=== PATIENT | female | born 1985 | race Caucasian/White ===

== ENCOUNTER 2017-08-07 19:27 | Emergency (ER) | payer BC ==
[2017-08-07 19:40] VITALS: BP 136/53
--- NOTE | 2017-08-07 20:20 | EDM.PDOC ---
ED HPI GENERAL MEDICAL PROBLEM - General Chief Complaint: Abdominal Pain Stated Complaint: LOWER ABDOMINAL PAIN Time Seen by Provider: 08/07/17 20:04 Source of Information: Reports: Patient History Limitations: Reports: No Limitations - History of Present Illness INITIAL COMMENTS - FREE TEXT/NARRATIVE: PT STATES SHE DEVELOPED LOWER ABD PAIN 3 DAYS AGO THAT HAS PROGRESSIVELY WORSENED AND NOW RADIATING TO BACK WITH URINARY URGENCY AND FREQUENCY. DENIES N/ V/D, FEVER, CP, SOB, OR VAG D/C. CURRENTLY TRYING TO GET . Onset: Gradual Onset Date: 08/04/17 Duration: Day(s): Location: Reports: Abdomen Quality: Reports: Ache Severity: Mild Improves with: Reports: None Worsens with: Reports: None Associated Symptoms: Reports: No Other Symptoms. Denies: Fever/Chills, Nausea/ Vomiting Bilateral Lower Abdominal Pain Score (Numeric/FACES): 2 - Related Data Allergies Allergy/AdvReac Type Severity Reaction Status Date / Time No Known Drug Allergies Allergy Cannot Verified 08/07/17 19:52 Remember Home Meds: Home Meds FLUoxetine HCl [Prozac] 20 mg PO DAILY 08/07/17 [History] Venlafaxine [Effexor] 37.5 mg PO DAILY 08/07/17 [History] hydrOXYzine HCl [Atarax] 25 mg PO TID PRN 08/07/17 [History] metroNIDAZOLE [Metrogel] 1 applic TP BID 7 Days #1 gel..gram. 08/07/17 [Rx] Social & Family History - Tobacco Use Smoking Status *Q: Never Smoker Second Hand Smoke Exposure: No - Caffeine Use Caffeine Use: Reports: Coffee, Soda, Tea - Recreational Drug Use Recreational Drug Use: No ED ROS GENERAL - Review of Systems Review Of Systems: ROS reveals no pertinent complaints other than HPI. Constitutional: Reports: No Symptoms HEENT: Reports: No Symptoms Respiratory: Reports: No Symptoms Cardiovascular: Reports: No Symptoms Endocrine: Reports: No Symptoms GI/Abdominal: Reports: Abdominal Pain : Reports: Flank Pain, Frequency, Urgency. Denies: Discharge, Dysuria Musculoskeletal: Reports: No Symptoms Skin: Reports: No Symptoms Neurological: Reports: No Symptoms Psychiatric: Reports: No Symptoms Hematologic/Lymphatic: Reports: No Symptoms Immunologic: Reports: No Symptoms ED EXAM, RENAL/ - Physical Exam Exam: See Below Exam Limited By: No Limitations General Appearance: Alert, WD/WN, No Apparent Distress Throat/Mouth: Normal Inspection, Normal Oropharynx, No Airway Compromise Head: Atraumatic, Normocephalic Neck: Normal Inspection Respiratory/Chest: No Respiratory Distress, Lungs Clear, Normal Breath Sounds, No Accessory Muscle Use, Chest Non-Tender Cardiovascular: Regular Rate, Rhythm, No Murmur GI/Abdominal: Normal Bowel Sounds, Soft, No Organomegaly, No Distention, No Mass , Tender (MILD TENDERNESS SUPRAPUBIC) (Female) Exam: Cervical Discharge (white creamy), Vaginal Discharge. No: Adnexal Mass, Adnexal Tenderness, Cervical Dilatation, Cervix Motion Tenderness , Uterine Tenderness, Vaginal Bleeding, Vaginal Lesions Back Exam: Normal Inspection, CVA Tenderness (L), CVA Tenderness (R) Extremities: Normal Inspection, No Pedal Edema Neurological: Alert, Oriented, Normal Cognition Psychiatric: Normal Affect, Normal Mood Skin Exam: Warm, Dry, Intact, Normal Color, No Rash Lymphatic: No Adenopathy Course - Vital Signs Last Recorded V/S: Last Vital Signs Temp 98.9 F 08/07/17 19:37 Pulse 98 08/07/17 19:37 Resp 16 08/07/17 19:37 BP 136/53 L 08/07/17 19:37 Pulse Ox 98 08/07/17 19:37 - Orders/Labs/Meds Orders: Active Orders 24 hr Category Date Time Status CBC WITH AUTO DIFF [HEME] Stat Lab 08/07/17 19:49 Ordered COMPREHENSIVE METABOLIC PN,CMP [CHEM] Stat Lab 08/07/17 19:49 Ordered HCG QUALITATIVE,SERUM [CHEM] Stat Lab 08/07/17 20:02 Ordered UA W/MICROSCOPIC [URIN] Stat Lab 08/07/17 19:42 Ordered - Re-Assessments/Exams Free Text/Narrative Re-Assessment/Exam: 08/07/17 20:50 PT AFEBRILE, NONTOXIC APPEARING, VSS, TOLERATED PROCEDURE WELL. DIFLOCAN GIVEN HERE, [employer] [facility] Departure - Departure Time of Disposition: 20:55 Disposition: Home, Self-Care 01 Condition: Good Clinical Impression: Bacterial vaginosis - Discharge Information Instructions: Bacterial Vaginosis, [id number]-[id number] Additional Instructions: FOLLOW UP AT [facility] IN 3-5 DAYS. RETURN TO ER SOONER IF SYMPTOMS CONTINUE - My Orders Last 24 Hours: My Active Orders 08/07/17 19:42 UA W/MICROSCOPIC [URIN] Stat 08/07/17 19:49 CBC WITH AUTO DIFF [HEME] Stat COMPREHENSIVE METABOLIC PN,CMP [CHEM] Stat 08/07/17 20:02 HCG QUALITATIVE,SERUM [CHEM] Stat - Assessment/Plan Last 24 Hours: My Active Orders 08/07/17 19:42 UA W/MICROSCOPIC [URIN] Stat 08/07/17 19:49 CBC WITH AUTO DIFF [HEME] Stat COMPREHENSIVE METABOLIC PN,CMP [CHEM] Stat 08/07/17 20:02 HCG QUALITATIVE,SERUM [CHEM] Stat Assessment:: BACTERIAL VAGINOSIS Plan: F/U WITH PCP
[2017-08-07 20:32] LABS: CHLORIDE,CL 103 mmol/L (98-115); SODIUM,NA 139 mmol/L (136-145)
[2017-08-07] MEDS ORDERED: Fluconazole 100 MG Tab PO ONE (20:52)
== END 2017-08-07 21:05 | disposition home or self-care (01) ==
LOC: KA.ED 19:27
DX: N76.0 Acute vaginitis (principal); Z79.899 Other long term (current) drug therapy
CPT/HCPCS: 36415; 80053; 81001; 84703; 85025; 87210; 99284; A9270; 87491; 87591

== ENCOUNTER 2019-01-04 07:00 | Emergency (ER) | payer BC ==
[2019-01-04 07:33] VITALS: BP 127/80
[2019-01-04 08:00] LABS: ANION GAP 8.6 mmol/L (5-15); CHLORIDE,CL 103 mmol/L (98-115); SODIUM,NA 134 mmol/L (136-145)
[2019-01-04] MEDS ORDERED: Ondansetron 4 MG Tab.DIS PO ONE (08:02)
--- NOTE | 2019-01-04 08:28 | EDM.PDOC ---
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 Patient states that she underwent a urine and quantitative test and was positive on Thursday. On Thursday, Patient developed some spotting and then large amount of vaginal bleeding that worsened today. Patient decided to present to ER. Patient is scheduled to be seen at the clinic later today. Patient has not had a ultrasound to confirm or evaluate if is ectopic. Patient does have some mild left lower quadrant discomfort. However, patient does have a history of ectopic in the past and had the left ovary and left fallopian tubes removed. Right ovary and right fallopian tube remains intact. Patient denies chest pain, shortness of breath, nausea, vomiting, diarrhea, dysuria, bowel changes, trauma, or fever. Onset: Gradual Onset Date: 01/02/19 Duration: Day(s): Location: Reports: Abdomen Quality: Reports: Ache Severity: Mild Improves with: Reports: None Worsens with: Reports: None Context: Denies: Trauma Associated Symptoms: Reports: Other (Vaginal bleeding) left lower abdomen Pain Score (Numeric/FACES): 3 - Related Data Allergies Allergy/AdvReac Type Severity Reaction Status Date / Time No Known Drug Allergies Allergy Cannot Verified 01/04/19 07:42 Remember Home Meds: Home Meds FLUoxetine HCl [Prozac] 20 mg PO DAILY 08/07/17 [History] Venlafaxine [Effexor] 37.5 mg PO DAILY 08/07/17 [History] PNV95/Ferrous Fumarate/FA [ Tablet] 1 each PO DAILY 01/04/19 [History] Past Medical History 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 Constitutional: Reports: No Symptoms HEENT: Reports: No Symptoms Respiratory: Reports: No Symptoms Cardiovascular: Reports: No Symptoms Endocrine: Reports: No Symptoms GI/Abdominal: Reports: Abdominal Pain (Left lower quadrant) : Reports: Other (Vaginal bleeding) Musculoskeletal: Reports: No Symptoms Skin: Reports: No Symptoms Neurological: Reports: No Symptoms Psychiatric: Reports: No Symptoms Hematologic/Lymphatic: Reports: No Symptoms Immunologic: Reports: No Symptoms ED EXAM - Physical Exam Exam: See Below Exam Limited By: No Limitations General Appearance: Alert, WD/WN, No Apparent Distress Throat/Mouth: Normal Inspection, Normal Oropharynx, No Airway Compromise Head: Atraumatic, Normocephalic Neck: Normal Inspection Respiratory/Chest: No Respiratory Distress, Lungs Clear, Normal Breath Sounds, No Accessory Muscle Use, Chest Non-Tender Cardiovascular: Regular Rate, Rhythm, No Murmur GI/Abdominal Exam: Normal Bowel Sounds, Soft, Non-Tender (Female) Exam: Other (Deferred per patient request) Back Exam: Normal Inspection. No: CVA Tenderness (L), CVA Tenderness (R) Extremities: Normal Inspection, No Pedal Edema Neurological: Alert, Oriented, Normal Cognition Psychiatric: Normal Affect, Normal Mood Skin Exam: Warm, Dry, Intact, Normal Color, No Rash Lymphatic: No Adenopathy Course - Vital Signs Last Recorded V/S: Last Vital Signs Temp 97.8 F 01/04/19 07:24 Pulse 81 01/04/19 07:24 Resp 14 01/04/19 07:24 BP 127/80 01/04/19 07:24 Pulse Ox 98 01/04/19 07:24 - Orders/Labs/Meds Labs: Laboratory Tests 01/04/19 01/04/19 01/04/19 Range/Units 07:25 07:25 07:25 WBC 6.03 (5.00-10.00) 10^3/uL RBC 4.60 (3.80-5.50) 10^6/uL Hgb 13.5 (12.0-16.0) g/dL Hct 38.9 (37.0-47.0) % MCV 84.6 D (82.0-92.0) fL MCH 29.3 (27.0-31.0) pg MCHC 34.7 (32.0-36.0) g/dL RDW 13.3 (11.5-14.5) % Plt Count 422 H (150-400) 10^3/uL MPV 8.6 (7.4-10.4) fL Immature Gran % (Auto) 0.0 (0.0-5.0) % Neut % (Auto) 52.4 (50.0-70.0) % Lymph % (Auto) 33.5 (20.0-40.0) % [place] % (Auto) 10.0 H (2.0-8.0) % Eos % (Auto) 2.8 (1.0-3.0) % Baso % (Auto) 1.3 H (0.0-1.0) % Immature Gran # (Auto) 0.00 (0.00-0.50) 10^3/uL Neut # (Auto) 3.16 (2.50-7.00) 10^3/uL Lymph # (Auto) 2.02 (1.00-4.00) 10^3/uL [place] # (Auto) 0.60 (0.10-0.80) 10^3/uL Eos # (Auto) 0.17 (0.10-0.30) 10^3/uL Baso # (Auto) 0.08 (0.00-0.10) 10^3/uL Sodium 134 L (136-145) mmol/L Potassium 3.5 (3.3-5.3) mmol/L Chloride 103 (98-115) mmol/L Carbon Dioxide 25.9 (21.0-32.0) mmol/L Anion Gap 8.6 (5-15) mmol/L BUN 8 (6-25) mg/dL Creatinine 0.80 (0.51-1.17) mg/dL Est Cr Clr Drug Dosing 94.56 mL/min Estimated GFR (MDRD) > 60 mL/min Glucose 88 (75 - 99) mg/dL Calcium 8.6 L (8.7-10.3) mg/dL Total Bilirubin 0.9 (0.2-1.0) mg/dL AST 14 L (15-37) U/L ALT 20 (12-78) U/L Alkaline Phosphatase 68 (46-116) IU/L Total Protein 7.8 (6.4-8.2) g/dL Albumin 3.84 (3.00-4.80) g/dL HCG, Quant 54 mIU/mL Specimen Type Urine Color (YELLOW) Urine Appearance (CLEAR) Urine pH (5.0-9.0) Ur Specific [place] (1.005-1.030) Urine Protein (NEGATIVE) mg/dL Urine Glucose (UA) (NEGATIVE) mg/dL Urine Ketones (NEGATIVE) mg/dL Urine Occult Blood (NEGATIVE) Urine Nitrite (NEGATIVE) Urine Bilirubin (NEGATIVE) Urine Urobilinogen (0.2-1.0) E.U./dL Ur Leukocyte Esterase (NEGATIVE) Urine RBC (0-5) /HPF Urine WBC (0-5) /HPF Ur Epithelial Cells /LPF Urine Bacteria (NONE TO FEW) /HPF Urine Yeast (NEGATIVE) /HPF Urinalysis Comment 01/04/19 Range/Units 07:29 WBC (5.00-10.00) 10^3/uL RBC (3.80-5.50) 10^6/uL Hgb (12.0-16.0) g/dL Hct (37.0-47.0) % MCV (82.0-92.0) fL MCH (27.0-31.0) pg MCHC (32.0-36.0) g/dL RDW (11.5-14.5) % Plt Count (150-400) 10^3/uL MPV (7.4-10.4) fL Immature Gran % (Auto) (0.0-5.0) % Neut % (Auto) (50.0-70.0) % Lymph % (Auto) (20.0-40.0) % [place] % (Auto) (2.0-8.0) % Eos % (Auto) (1.0-3.0) % Baso % (Auto) (0.0-1.0) % Immature Gran # (Auto) (0.00-0.50) 10^3/uL Neut # (Auto) (2.50-7.00) 10^3/uL Lymph # (Auto) (1.00-4.00) 10^3/uL [place] # (Auto) (0.10-0.80) 10^3/uL Eos # (Auto) (0.10-0.30) 10^3/uL Baso # (Auto) (0.00-0.10) 10^3/uL Sodium (136-145) mmol/L Potassium (3.3-5.3) mmol/L Chloride (98-115) mmol/L Carbon Dioxide (21.0-32.0) mmol/L Anion Gap (5-15) mmol/L BUN (6-25) mg/dL Creatinine (0.51-1.17) mg/dL Est Cr Clr Drug Dosing mL/min Estimated GFR (MDRD) mL/min Glucose (75 - 99) mg/dL Calcium (8.7-10.3) mg/dL Total Bilirubin (0.2-1.0) mg/dL AST (15-37) U/L ALT (12-78) U/L Alkaline Phosphatase (46-116) IU/L Total Protein (6.4-8.2) g/dL Albumin (3.00-4.80) g/dL HCG, Quant mIU/mL Specimen Type Urincc Urine Color Dark yellow H (YELLOW) Urine Appearance Slightly cloudy H (CLEAR) Urine pH 6.0 (5.0-9.0) Ur Specific [place] >= 1.030 (1.005-1.030) Urine Protein 30 H (NEGATIVE) mg/dL Urine Glucose (UA) Negative (NEGATIVE) mg/dL Urine Ketones Trace H (NEGATIVE) mg/dL Urine Occult Blood Large H (NEGATIVE) Urine Nitrite Negative (NEGATIVE) Urine Bilirubin Small H (NEGATIVE) Urine Urobilinogen 0.2 (0.2-1.0) E.U./dL Ur Leukocyte Esterase Negative (NEGATIVE) Urine RBC 20-30 H (0-5) /HPF Urine WBC 0-5 (0-5) /HPF Ur Epithelial Cells Moderate H /LPF Urine Bacteria Few (NONE TO FEW) /HPF Urine Yeast Few H (NEGATIVE) /HPF Urinalysis Comment See note Meds: Medications Discontinued Medications Generic Name Dose Route Start Last Admin Trade Name Freq PRN Reason Stop Dose Admin Ondansetron HCl 4 mg 01/04/19 08:02 01/04/19 08:06 Zofran Odt PO 01/04/19 08:03 4 mg ONETIME ONE Administration - Re-Assessments/Exams Free Text/Narrative Re-Assessment/Exam: 01/04/19 08:45 Patient afebrile, appears nontoxic, abdominal discomfort resolved. Discussed case with Carlos Lynne from [facility]. Patient will follow-up today at the clinic for ultrasound and then tomorrow with Dr. Lashaun saab. Patient will return to the emergency department if symptoms continue or worsen. Departure - Departure Time of Disposition: 08:46 Disposition: Home, Self-Care 01 Condition: Good Clinical Impression: Threatened - Discharge Information Instructions: Threatened Miscarriage, Vaginal Bleeding During , First Trimester, [id number] Referrals: Mitzy Mckeon [employer] [Primary Care Provider] - Forms: ED Department Discharge Additional Instructions: Follow-up at clinic today for ultrasound, and appointment with Dr. Lashaun saab tomorrow. Return to emergency department sooner if symptoms continue or worsen. - Assessment/Plan Assessment:: Threatened Plan: Follow-up at clinic today
== END 2019-01-04 08:55 | disposition home or self-care (01) ==
LOC: KA.ED 07:00
DX: O20.0 Threatened abortion (principal); Z79.899 Other long term (current) drug therapy
CPT/HCPCS: 36415; 80053; 81001; 84702; 85025; 99284; A9270-GY